=== PATIENT | male | born 1995 | race Caucasian/White ===

== ENCOUNTER 2017-03-12 09:36 | Emergency (ER) | payer BC ==
[~2017-03-12] VITALS: Ht 182.9 cm; Wt 74.0 kg
[2017-03-12] MEDS ORDERED: SODIUM CHLOR 0.9% 1000 ML INJ 1,000 ML IV SCH (10:32)
[2017-03-12 10:42] VITALS: O2SAT 100
[2017-03-12] MEDS ORDERED: KETOROLAC TROMETHAMINE 30 MG/ML (IVP) VIAL IVP ONE (10:45)
[2017-03-12] MEDS ORDERED: SODIUM CHLORIDE 0.9% FLUSH 10 ML FLUSH IV FLUSH PRN (10:45)
[2017-03-12] MEDS ORDERED: ceFAZolin 2 GM PREMIX 50 ML IV ONE (10:45)
[2017-03-12] MEDS ORDERED: MORPHINE SULFATE 4 MG/ML INJ IV PUSH ONE (10:45)
[2017-03-12] MEDS ORDERED: ONDANSETRON HCL 4 MG/2 ML VIAL IVP ONE (10:45)
--- NOTE | 2017-03-12 10:55 | PD ---
HPI Chief Complaint: Injury Time Seen by Provider: 10:30 Travel History International Travel<30 days: No Contact w/Intl Traveler<30days: No Traveled to known affect area: No History of Present Illness HPI 21-year-old male presents to emergency department with a workplace injury to the left hand consisting of a nail from a nail gun. The nail is embedded in the distal palm on an angular trajectory entering laterally to the third finger. Patient has decreased range of motion to the third finger and wrist secondary to pain. There is no bleeding. Patient is unsure of his last tetanus. Pain is 9 out of 10. Patient has no known drug allergies. [facility] Past Medical History Medical History: Denies Significant Hx Diminished Hearing: No Tetanus Vaccination: > 5 Years Influenza Vaccination: No ?: Not Social History Alcohol Use: Yes (OCC) Tobacco Use: Yes (.5 PPD) Substance Use: No Allergies-Medications (Allergen,Severity, Reaction): Coded Allergies: No Known Allergies (Unverified , 03/12/17) Reported Meds & Prescriptions Reported Meds & Active Scripts Active No Active Prescriptions or Reported Medications Review of Systems Except as stated in HPI: all other systems reviewed are Neg General / Constitutional: No: Fever Eyes: No: Visual changes HENT: No: Headaches Cardiovascular: No: Chest Pain or Discomfort Respiratory: No: Shortness of Breath Gastrointestinal: No: Abdominal Pain Genitourinary: No: Dysuria Musculoskeletal: Positive: Arthralgias, Limited ROM, Pain (see history present illness.) Skin: Positive Other (foreign body left hand.), No Rash Neurologic: No: Weakness Psychiatric: No: Depression Endocrine: No: Polydipsia Hematologic/Lymphatic: No: Easy Bruising Physical Exam Narrative GENERAL: Patient appears in mild to moderate distress. SKIN: Warm and dry. Obvious foreign body is seen in the right hand. No bleeding. Normal capillary refill distal to the wound. HEAD: Atraumatic. Normocephalic. EYES: Pupils equal and round. No scleral icterus. No injection or drainage. ENT: No nasal bleeding or discharge. Mucous membranes pink and moist. NECK: Trachea midline. Supple nontender. CARDIOVASCULAR: Regular rate and rhythm. RESPIRATORY: No accessory muscle use. Clear to auscultation. Breath sounds equal bilaterally. MUSCULOSKELETAL: Extremities without clubbing, cyanosis, or edema. No obvious deformities. Patient is obvious foreign body to the left palmar surface of the hand in the second web space with possible bony involvement of the metacarpal bone of the third digit. Range of motion is diminished secondary to pain. NEUROLOGICAL: Awake and alert. No obvious cranial nerve deficits. Motor grossly within normal limits. Five out of 5 muscle strength in the arms and legs. Normal speech. PSYCHIATRIC: Appropriate mood and affect; insight and judgment normal. Data Data Last Documented VS Vital Signs Date Time Temp Pulse Resp B/P (MAP) Pulse Ox O2 Delivery O2 Flow Rate FiO2 03/12/17 11:26 98.0 78 18 135/86 (102) 100 Room Air Orders Orders Complete Blood Count With Diff (03/12/17 10:32) Comprehensive Metabolic Panel (03/12/17 10:32) Prothrombin Time / Inr (Pt) (03/12/17 10:32) Act Partial Throm Time (Ptt) (03/12/17 10:32) Iv Access Insert/Monitor (03/12/17 10:32) Ecg Monitoring (03/12/17 10:32) Oximetry (03/12/17 10:32) NPO (03/12/17 10:32) Morphine Inj (Morphine Inj) (03/12/17 10:45) Ondansetron Inj (Zofran Inj) (03/12/17 10:45) Sodium Chlor 0.9% 1000 Ml Inj (Ns 1000 M (03/12/17 10:32) Sodium Chloride 0.9% Flush (Ns Flush) (03/12/17 10:45) Ketorolac Inj (Toradol Inj) (03/12/17 10:45) Cefazolin 2 Gm Premix (Ancef 2 Gm Premix (03/12/17 10:45) Hand, Complete ([id number]) (03/12/17 10:32) Ice/Cold Pack (03/12/17 10:32) Tetanus/Diphtheria Tox Adult (Tetanus/Di (03/12/17 11:00) Lidocaine 2% Inj (Xylocaine 2% Inj) (03/12/17 11:15) Labs Laboratory Tests Test 03/12/17 11:10 Prothrombin Time 10.2 SEC Prothromb Time International Ratio 0.9 RATIO Activated Partial Thromboplast Time 27.5 SEC Blood Urea Nitrogen 20 MG/DL Creatinine 1.06 MG/DL Random Glucose 89 MG/DL Total Protein 8.7 GM/DL Albumin 5.2 GM/DL Calcium Level 10.4 MG/DL Alkaline Phosphatase 88 U/L Aspartate Amino Transf (AST/SGOT) 85 U/L Alanine Aminotransferase (ALT/SGPT) 50 U/L Total Bilirubin 0.8 MG/DL Sodium Level 137 MEQ/L Potassium Level 4.6 MEQ/L Chloride Level 104 MEQ/L Carbon Dioxide Level 25.8 MEQ/L Anion Gap 7 MEQ/L Estimat Glomerular Filtration Rate 89 ML/MIN [facility] Medical Decision Making Medical Screen Exam Complete: Yes Emergency Medical Condition: Yes Differential Diagnosis Workplace injury. Puncture wound of the right hand. Possible bony involvement. Foreign body. Narrative Course Patient is made nothing by mouth. X-ray of the right hand is ordered and ice pack is applied. Labs ordered including CBC, CMP, PT PTT and INR. IV access is obtained, and the patient is given 30 mg Toradol, 4 mg morphine IV as well as 4 mg Zofran IV. Patient is given 2 g Ancef IV. Patient is given tetanus 0.5 mg IM. X-ray seems to show no bony involvement. Patient was discussed with Dr. Guo, who has a call out to the hand surgeon. Nail was removed without difficulty. Please see procedure note. Dressing is to remain in place until seen in follow-up with a hand surgeon. Patient is placed on Bactrim DS twice a day 7 days. Patient is placed on Keflex 3 times a day 7 days. Patient is given ibuprofen 800 mg 3 times daily with food for pain. #30. Procedures Procedure Narrative Foreign body removal LOCATION: Left palm The area of the foreign body was prepped with Betadine and sterilely draped. The local area was was infiltrated with 4 mL's 2% lidocaine. Foreign body was removed without evidence of tendon injury or neurovascular injury. After foreign body removal the patient is able to make a fist with difficulty secondary to pain. A sterile dressing was applied. The patient was advised to keep the dressing clean and dry. Patient tolerated the procedure well. Patient is to follow with the hand surgeon in the next week to ensure proper recovery. Diagnosis Primary Impression: Work related injury Referrals: Willie Carnes MD call for appointment Patient Instructions: General Instructions, Puncture Wound (ED), Soft Tissue Foreign Body (ED) Departure Forms: Work Release Special Instructions: No use of left hand until cleared by hand surgeon. Additional Instructions: Nail was removed without difficulty. Dressing is to remain in place until seen in follow-up with a hand surgeon. Patient is placed on Bactrim DS twice a day 7 days. Patient is placed on Keflex 3 times a day 7 days. Patient is given ibuprofen 800 mg 3 times daily with food for pain. #30. Med/Other Pt SpecificInfo: Prescription(s) given Scripts No Active Prescriptions or Reported Meds Disposition: 01 DISCHARGE HOME Condition: Stable Dereck Rutledge Mar 12, 2017 10:55
[2017-03-12] MEDS ORDERED: TETANUS/DIPHTHERIA TOXOID ADULT 0.5 ML VIAL IM ONE (11:00)
[2017-03-12] MEDS ORDERED: LIDOCAINE HCL 2% 20 ML VIAL INFIL ONE (11:15)
--- NOTE | 2017-03-12 11:17 | PD ---
Data Data Last Documented VS Vital Signs Date Time Temp Pulse Resp B/P (MAP) Pulse Ox O2 Delivery O2 Flow Rate FiO2 03/12/17 12:47 65 16 122/82 (95) 100 03/12/17 11:26 98.0 Room Air Orders Orders Complete Blood Count With Diff (03/12/17 10:32) Comprehensive Metabolic Panel (03/12/17 10:32) Prothrombin Time / Inr (Pt) (03/12/17 10:32) Act Partial Throm Time (Ptt) (03/12/17 10:32) Iv Access Insert/Monitor (03/12/17 10:32) Ecg Monitoring (03/12/17 10:32) Oximetry (03/12/17 10:32) NPO (03/12/17 10:32) Morphine Inj (Morphine Inj) (03/12/17 10:45) Ondansetron Inj (Zofran Inj) (03/12/17 10:45) Sodium Chlor 0.9% 1000 Ml Inj (Ns 1000 M (03/12/17 10:32) Sodium Chloride 0.9% Flush (Ns Flush) (03/12/17 10:45) Ketorolac Inj (Toradol Inj) (03/12/17 10:45) Cefazolin 2 Gm Premix (Ancef 2 Gm Premix (03/12/17 10:45) Hand, Complete ([id number]) (03/12/17 10:32) Ice/Cold Pack (03/12/17 10:32) Tetanus/Diphtheria Tox Adult (Tetanus/Di (03/12/17 11:00) Lidocaine 2% Inj (Xylocaine 2% Inj) (03/12/17 11:15) Ed Discharge Order (03/12/17 12:22) Labs Laboratory Tests Test 03/12/17 11:10 White Blood Count 8.5 TH/MM3 Red Blood Count 4.94 MIL/MM3 Hemoglobin 15.8 GM/DL Hematocrit 47.0 % Mean Corpuscular Volume 95.2 FL Mean Corpuscular Hemoglobin 32.1 PG Mean Corpuscular Hemoglobin Concent 33.7 % Red Cell Distribution Width 12.7 % Platelet Count 285 TH/MM3 Mean Platelet Volume 8.1 FL Neutrophils (%) (Auto) 68.6 % Lymphocytes (%) (Auto) 20.6 % Monocytes (%) (Auto) 8.8 % Eosinophils (%) (Auto) 1.6 % Basophils (%) (Auto) 0.4 % Neutrophils # (Auto) 5.8 TH/MM3 Lymphocytes # (Auto) 1.8 TH/MM3 Monocytes # (Auto) 0.7 TH/MM3 Eosinophils # (Auto) 0.1 TH/MM3 Basophils # (Auto) 0.0 TH/MM3 CBC Comment DIFF FINAL Differential Comment Prothrombin Time 10.2 SEC Prothromb Time International Ratio 0.9 RATIO Activated Partial Thromboplast Time 27.5 SEC Blood Urea Nitrogen 20 MG/DL Creatinine 1.06 MG/DL Random Glucose 89 MG/DL Total Protein 8.7 GM/DL Albumin 5.2 GM/DL Calcium Level 10.4 MG/DL Alkaline Phosphatase 88 U/L Aspartate Amino Transf (AST/SGOT) 85 U/L Alanine Aminotransferase (ALT/SGPT) 50 U/L Total Bilirubin 0.8 MG/DL Sodium Level 137 MEQ/L Potassium Level 4.6 MEQ/L Chloride Level 104 MEQ/L Carbon Dioxide Level 25.8 MEQ/L Anion Gap 7 MEQ/L Estimat Glomerular Filtration Rate 89 ML/MIN MDM Supervised Visit with MARY: Yes Narrative Course I, Dr. Guo, have reviewed the advance practice practitioner's documentation and am in agreement, met with the patient face to face, made the diagnosis, and the medical decision making was done by me. *My assessment and Findings: This is a 21-year-old male presents emergency department for evaluation of a nail gun injury to his left hand. I reviewed the x-rays and examined the patient appears to be soft tissue lodged. Appears to have both flexor tendons and extensor tendons and intact over the 4 digits in all motions abduction and abduction flexion and extension and opposition are intact on the thumb. Wrist is unaffected. Cap refill is brisk in all 5 digits. The nail was extracted by PA, patient will be placed on antibiotics and is stable for discharge. The patient was briefly discussed with Dr. Campbell by me. Scripts Hydrocodone-Acetaminophen (Lortab) 5-325 Mg Tab 1 TAB PO Q6H Y for PAIN, #12 TAB 0 Refills Prov: Neil Guo MD 03/12/17 Ibuprofen (Ibuprofen) 800 Mg Tab 800 MG PO Q8H Y for Pain/Inflammation, #30 TAB 0 Refills Prov: Neil Guo MD 03/12/17 Cephalexin (Keflex) 500 Mg Capsule 500 MG PO Q8H for Infection for 7 Days, #21 CAP 0 Refills Prov: Neil Guo MD 03/12/17 Sulfamethoxazole-Trimethoprim (Bactrim DS) 800-160 Mg Tab 1 TAB PO BID for Infection, #14 TAB 0 Refills Prov: Neil Guo MD 03/12/17 Condition: Stable Neil Guo MD Mar 12, 2017 11:17
[2017-03-12 11:26] VITALS: BP 135/86; PULSE 78; RESP 18; TEMP 98; O2SAT 100
--- NOTE | 2017-03-12 11:28 | RADRPT ---
EXAM DATE/TIME: 03/12/2017 10:54 [facility] COMPARISON: No previous studies available for comparison. INDICATIONS : Nail gun went off in his left hand MEDICAL HISTORY : None. SURGICAL HISTORY : None. ENCOUNTER: Initial ACUITY: 1 day PAIN SCORE: 10/10 LOCATION: Left hand FINDINGS: There is a large nail embedded along the palmar aspect of the hand at the level of the proximal third metatarsal. No evidence for acute bony fracture. Joint spaces are maintained. Carpal bones are intac t. CONCLUSION: Large nail embedded in the palmar aspect of the hand at the level of the proximal third metatarsal wi thout acute bony fracture or dislocation. Levi Cardozo MD on March 12, 2017 at 11:24 Board Certified Radiologist. This report was verified electronically.
[2017-03-12 11:59] LABS: APTT (PATIENT) 27.5 SEC (24.3-30.1); INTERNATIONAL NORMALIZED RATIO 0.9 RATIO; PROTHROMBIN TIME - PATIENT 10.2 SEC (9.8-11.6)
[2017-03-12 12:05] LABS: ANION GAP 7 MEQ/L (5-15); AST (GOT) 85 U/L (15-39); BICARBONATE 25.8 MEQ/L (21.0-32.0); BLOOD UREA NITROGEN 20 MG/DL (7-18); CHLORIDE 104 MEQ/L (98-107); GLOMERULAR FILTRATION RATE 89 ML/MIN (>89); POTASSIUM 4.6 MEQ/L (3.5-5.1); SODIUM (NA) 137 MEQ/L (136-145)
[2017-03-12 12:08] LABS: ALKALINE PHOSPHATASE 88 U/L (45-117); ALT (GPT) 50 U/L (9-52); TOTAL BILIRUBIN ADULT 0.8 MG/DL (0.2-1.0)
[2017-03-12] MEDS ORDERED: HYDR-3533 PO (12:22)
[2017-03-12] MEDS ORDERED: BACT800T5 PO (12:22)
[2017-03-12] MEDS ORDERED: IBUP800T23 PO (12:22)
[2017-03-12] MEDS ORDERED: CEPH-460 PO (12:22)
[2017-03-12 12:39] LABS: AUTOMATED NEUTROPHIL # 5.8 TH/MM3 (1.8-7.7); BASOPHIL % 0.4 % (0.0-2.0); EOSINOPHIL # 0.1 TH/MM3 (0-0.4); EOSINOPHIL % 1.6 % (0.0-4.0); HEMO FLAGS DIFF FINAL; LYMPH % 20.6 % (9.0-44.0); LYMPHOCYTE # 1.8 TH/MM3 (1.0-4.8); MEAN CELL VOLUME 95.2 FL (80.0-100.0); MEAN CORPUSCULAR HEMOGLOBIN 32.1 PG (27.0-34.0); MEAN CORPUSCULAR HGB CONC 33.7 % (32.0-36.0); MONO % 8.8 % (0.0-8.0); NEUT % 68.6 % (16.0-70.0); PLATELET COUNT 285 TH/MM3 (150-450); RED BLOOD COUNT 4.94 MIL/MM3 (4.50-5.90); RED CELL DISTRIBUTION WIDTH 12.7 % (11.6-17.2); WHITE BLOOD COUNT 8.5 TH/MM3 (4.0-11.0)
[2017-03-12 12:47] VITALS: BP 122/82
== END 2017-03-12 12:59 | disposition home or self-care (01) ==
LOC: NEPD 09:36
DX: S61.442A Puncture wound with foreign body of left hand, initial encounter (principal); W29.4XXA Contact with nail gun, initial encounter; Z23 Encounter for immunization
CPT/HCPCS: 10120; 73130; 80053; 85025; 85610; 85730; 90471; 90714; 96365; 96375; 99284; J0690; J1885; J2270; J2405; J7030